=== PATIENT | female | born 1960 | race Caucasian/White ===

== ENCOUNTER 2016-09-25 05:16 | Emergency (ER) | payer OTHER ==
--- NOTE | ~2016-09-25 | ER ---
PATIENT'S NAME: [facility] AGE: 56 Y [address] ROOM: [place] [id number] LOCATION: [facility] ADMIT DATE: 09/25/2016 ER/Outpatient Report DISCHARGE DATE: 09/25/2016 FAMILY PHYSICIAN: Frank Gracia MD ATTENDING PHYSICIAN: Josy Fair Time of Arrival: 0516 hours. Time of Evaluation: 0540 hours. IDENTIFICATION: A 56-year-old female. CHIEF COMPLAINT: Left fifth finger injury. HISTORY OF PRESENT ILLNESS: The patient works in [employer] here at [facility] [employer] and she crushed her left pinky finger between a linen cart and a wall. No other injury. She has decreased range of motion secondary to pain. PAST MEDICAL HISTORY: Allergies: Penicillin. CURRENT MEDICATIONS: 1. Synthroid. 2. Blood pressure medication. 3. Arthritis medication. 4. Bladder control medication. MEDICAL PROBLEMS: Hypertension, hypothyroidism, and incontinence. SOCIAL HISTORY: The patient lives in [place]. She works in [employer]. She is . Tobacco use denies. Alcohol use denies. Drug use denies. Her primary care physician is Dr. Frank Gracia. ROS: Otherwise, negative. PHYSICAL EXAMINATION: VITAL SIGNS: Height 5 feet 2 inches, weight 60.6 kg, blood pressure 140/79, pulse 74, respirations 10, temperature 98.7, and saturations 96% on room air. GENERAL: A 56-year-old female in no acute distress. EXTREMITIES: Left upper extremity neurovascularly intact. Decreased range of PATIENT'S NAME: [facility] AGE: 56 Y [address] ROOM: [place] [id number] LOCATION: [facility] ADMIT DATE: 09/25/2016 ER/Outpatient Report DISCHARGE DATE: 09/25/2016 FAMILY PHYSICIAN: Frank Gracia MD ATTENDING PHYSICIAN: Josy Fair motion of the distal aspect of her fifth finger secondary to pain. She is able to flex and extend. She has a superficial laceration around the proximal portion of her nail. She is bleeding around the edges. The nail is intact. She is tender at the PIP joint. LABORATORY DATA: No fracture or dislocation is noted on x-ray. IMPRESSION: Crush injury with soft tissue injury to left fifth finger. PLAN: Triple antibiotic was applied, a Band-Aid, and a splint. Splint for comfort. Ice and elevate. Tylenol or Advil for pain. Wound care discussed and follow up with Dr. Gracia in 2-3 days. Follow up sooner if any problems or concerns. I did give her a note to remain off work today. Okay to return tomorrow as tolerated. The patient understands and agrees, and all questions have been answered. MD TINY BOURGEOIS/modl /[id number] d: 09/25/16 0709 t: 09/26/16 0454, OUTPATIENT REPORT
== END 2016-09-25 05:52 | disposition disaster alternative care site (69) ==
LOC: GACC 05:16
PROC: 2W3DX1Z Immobilization of Left Lower Arm using Splint (ICD-10-PCS; principal; 2016-09-25)
DX: S67.197A Crushing injury of left little finger, initial encounter (principal); I10 Essential (primary) hypertension; E03.9 Hypothyroidism, unspecified; Z88.0 Allergy status to penicillin; W23.0XXA Caught, crushed, jammed, or pinched between moving objects, initial encounter